=== PATIENT | female | born 1955 | race Caucasian/White ===

== ENCOUNTER → 2025-01-23 11:00 | Outpatient (BNVA) | payer MEDICARE, BC, SELFPAY | PROVIDERS: PCP Nurse Practitioner Family; Visit Provider Internal Medicine | DX: E07.9 Disorder of thyroid, unspecified (principal); E06.3 Autoimmune thyroiditis; Z85.3 Personal history of malignant neoplasm of breast; R68.82 Decreased libido; Z90.710 Acquired absence of both cervix and uterus; Z87.42 Personal history of other diseases of the female genital tract | CPT/HCPCS: 99204 ==